=== PATIENT | male | born 1965 | race Hispanic/Latino ===

== ENCOUNTER 2017-07-17 02:38 | Emergency (ER) | payer BC ==
[2017-07-17 02:54] VITALS: BP 155/88; PULSE 66; RESP 18; TEMP 98.8; O2SAT 98
--- NOTE | 2017-07-17 03:17 | ED PDOC ---
HPI: Eye Injury/Pain Time Seen by Provider: 07/17/17 02:52 Chief Complaint (Nursing): Eye Problem Chief Complaint (Provider): left eye irritation History Per: Patient History/Exam Limitations: no limitations Onset/Duration Of Symptoms: Hrs Current Symptoms Are (Timing): Still Present Quality: "Pain" Associated Symptoms: FB Sensation, Discharge From Eye Additional History Per: Patient Additional Complaint(s): 51 y/o male presents with left eye irritation x 5 hours. Patient states he went to remove his daily throw-away contact lenses and felt immediate discomfort after removing the left one. Associated photosensivitiy, clear drainage. Denies headache, vision changes. Past Medical History Reviewed: Historical Data, Nursing Documentation, Vital Signs Vital Signs: Last Vital Signs Temp 98.8 F 07/17/17 02:52 Pulse 66 07/17/17 02:52 Resp 18 07/17/17 02:52 BP 155/88 H 07/17/17 02:52 Pulse Ox 98 07/17/17 02:52 - Medical History PMH: HTN - Surgical History Surgical History: No Surg Hx - Family History Family History: States: No Known Family Hx - Home Medications Home Medications: Ambulatory Orders Medication Instructions Recorded Ofloxacin Ophth 0.3% [Ocuflox 2 drop OS QID 5 Days bottle 07/17/17 Ophth 0.3%] - Allergies Allergies/Adverse Reactions: Allergies Allergy/AdvReac Type Severity Reaction Status Date / Time Penicillins Allergy RASH Verified 07/17/17 02:52 Review of Systems ROS Statement: Except As Marked, All Systems Reviewed And Found Negative Eyes: Positive for: Redness (left) Physical Exam - Reviewed Nursing Documentation Reviewed: Yes Vital Signs Reviewed: Yes - Physical Exam Appears: Positive for: Well, Non-toxic, No Acute Distress Head Exam: Positive for: ATRAUMATIC, NORMAL INSPECTION, NORMOCEPHALIC Skin: Positive for: Normal Color Eye Exam: Positive for: EOMI, PERRL, Conjunctival injection (left. Dried discharge noted lower lid). Negative for: Periorbital swelling, Periorbital tenderness - ECG O2 Sat by Pulse Oximetry: 98 - Progress ED Course And Treament: left eye anesthetized with two drops Tetracaine. Fluro stain reveals small uptake left cornea 3:00 position. Patient educated on findings, given eye patch Rx Ofloxacin provided Follow up Optho today Return precautions given Condition: Re-examined Disposition - Clinical Impression Clinical Impression: Corneal abrasion - Patient ED Disposition Is Patient to be Admitted: No Counseled Patient/Family Regarding: Studies Performed, Diagnosis, Need For Followup, Rx Given - Disposition Referrals: Rodolfo Spence MD [Staff Provider] - Disposition: Routine/Home Disposition Time: 03:32 Condition: IMPROVED Prescriptions: Ofloxacin Ophth 0.3% [Ocuflox Ophth 0.3%] 2 drop OS QID 5 Days bottle Instructions: Corneal Abrasion (ED) Forms: [facility] ([place]), [facility] ED School/Work Excuse
== END 2017-07-17 03:40 | disposition home or self-care (01) ==
LOC: H.ER 02:38
DX: S05.02XA Injury of conjunctiva and corneal abrasion without foreign body, left eye, initial encounter (principal); Y92.89 Other specified places as the place of occurrence of the external cause